=== PATIENT | female | born 1975 | race Caucasian/White ===

== ENCOUNTER → 2018-06-08 | Outpatient (REF) | payer BC ==
[~2018-06-08] MED LIST: LEVA1TAB2 PO; PERCOCET PO
[2018-06-12 14:43] LABS: HPV HYBRID CAPTURE II Negative (Negative)
== END ==
LOC: M LAB LCGH 11:28
PROVIDERS: ATTEND Family Medicine
DX: Z12.4 Encounter for screening for malignant neoplasm of cervix (principal)
CPT/HCPCS: 87624; G0123